=== PATIENT | male | born 1950 | race Caucasian/White ===

== ENCOUNTER → 2021-11-22 | Outpatient (CLI) | payer MEDICARE ==
[2021-11-22 09:34] LABS: INR 0.93 (0.85-1.15); PROTHROMBIN TIME 10.1 SEC (9.6-11.6)
[2021-11-22 09:35] LABS: PARTIAL THROMBOPLASTIN TIME 24.5 SEC (26.3-35.5)
== END | disposition home or self-care (01) ==
LOC: RAH 08:28
PROVIDERS: ATTEND Otolaryngology Plastic Surgery within the Head & Neck
DX: C43.4 Malignant melanoma of scalp and neck (principal); R59.0 Localized enlarged lymph nodes; Z79.01 Long term (current) use of anticoagulants
CPT/HCPCS: 36415; 38505; 76942; 85610; 85730; 88305; 88341; 88342

== ENCOUNTER 2022-07-04 09:22 | Inpatient (IN) | payer MEDICARE ==
[~2022-07-04] VITALS: Ht 172.7 cm; Wt 99.8 kg
[2022-07-04 10:00] LABS: BASOPHILS % (AUTO) 0.2 % (0.0-5.0); EOSINOPHILS % (AUTO) 0.5 % (0.0-8.0); HEMATOCRIT 29.1 % (42-54); LYMPHOCYTES % (AUTO) 23.3 % (21.0-51.0); MEAN CORPUSCULAR HEMOGLOBIN 35.2 pg (27.0-33.0); MEAN CORPUSCULAR VOLUME 103.6 fL (79-99); MONOCYTES % (AUTO) 6.2 % (3.0-13.0); NEUTROPHILS % (AUTO) 68.8 % (40.0-77.0); PLATELET COUNT (AUTO) 169 K/uL (130-400); RED BLOOD CELL COUNT(AUTO) 2.81 MIL/uL (4.50-6.20); RED CELL DISTRIBUTION WIDTH 16.4 % (11.0-15.5); WHITE BLOOD COUNT (AUTO) 13.1 K/uL (4.8-10.8)
[2022-07-04 10:07] LABS: CARBON DIOXIDE 21 mmol/L (21-32); CHLORIDE 104 mmol/L (101-111); CREATININE 1.7 mg/dL (0.5-1.5); GLOMERULAR FILTR. RATE CALC 43 mL/min (>90); GLUCOSE,RANDOM 98 mg/dL (70-105); POTASSIUM 3.5 mmol/L (3.5-5.1); SODIUM SERUM 137 mmol/L (136-145); UREA NITROGEN, BLOOD 21 mg/dL (7-18)
[2022-07-04 10:15] LABS: ALANINE AMINOTRANSFERASE 33 U/L (12-78); ALBUMIN 3.1 g/dL (3.5-5.0); ASPARTATE AMINOTRANSFERASE 14 U/L (10-37); TOTAL PROTEIN, SERUM 5.3 g/dL (6.0-8.3)
[2022-07-04] MEDS ORDERED: MORPHINE 2 MG SYG ONE (10:30)
[2022-07-04] MEDS ORDERED: ONDANSETRON 4MG INJ ONE (10:31)
[2022-07-04] MEDS ORDERED: PHARMACY COMMUNICATION MISC PRN (11:30)
[2022-07-04] MEDS ORDERED: ACETAMINOPHEN 325 MG TAB PO PRN (11:30)
[2022-07-04] MEDS ORDERED: ONDANSETRON 4MG INJ IVP PRN (11:30)
[2022-07-04] MEDS: CHLORDIAZEPOXIDE HCL 25 MG CAP PO PRN ×3 (12:12→20:25)
[2022-07-04] MEDS: MORPHINE 2 MG SYG IVP PRN ×2 (12:12→16:00)
[2022-07-04 12:46] LABS: BASOPHILS % (AUTO) 0.2 % (0.0-5.0); EOSINOPHILS % (AUTO) 0.4 % (0.0-8.0); HEMATOCRIT 27.7 % (42-54); LYMPHOCYTES % (AUTO) 24.2 % (21.0-51.0); MEAN CORPUSCULAR HEMOGLOBIN 35.7 pg (27.0-33.0); MEAN CORPUSCULAR HGB CONC 34.3 g/dL (32.0-36.0); MEAN CORPUSCULAR VOLUME 104.1 fL (79-99); MONOCYTES % (AUTO) 6.2 % (3.0-13.0); NEUTROPHILS % (AUTO) 68.2 % (40.0-77.0); PLATELET COUNT (AUTO) 137 K/uL (130-400); RED BLOOD CELL COUNT(AUTO) 2.66 MIL/uL (4.50-6.20); RED CELL DISTRIBUTION WIDTH 16.3 % (11.0-15.5); WHITE BLOOD COUNT (AUTO) 11.3 K/uL (4.8-10.8)
[2022-07-04 13:03] LABS: CREATININE 1.4 mg/dL (0.5-1.5)
[2022-07-04 13:06] LABS: TOTAL PROTEIN, SERUM 5.2 g/dL (6.0-8.3)
[2022-07-04 15:33] LABS: APPEARANCE,URINE CLEAR (CLEAR); BILIRUBIN,URINE NEGATIVE (NEGATIVE); COLOR,URINE LIGHT-YELLOW (YELLOW); GLUCOSE, URINE (UA) NEGATIVE (NEGATIVE); KETONES,URINE 5 mg/dL (NEGATIVE); LEUKOCYTE ESTERASE ,URINE NEGATIVE Leu/uL (NEGATIVE); NITRATE,URINE NEGATIVE (NEGATIVE); OCCULT BLOOD,URINE NEGATIVE (NEGATIVE); PH,URINE 5.5 (5.0-8.0); PROTEIN,URINE NEGATIVE (NEGATIVE); UROBILINOGEN,URINE 0.2 mg/dL (0.2-1.0)
[2022-07-04 15:39] LABS: AMPHET/METH SCREEN,URINE NEGATIVE (NEGATIVE); BARBITURATE SCREEN, URINE NEGATIVE (NEGATIVE); BENZODIAZEPINES SCREEN,URINE NEGATIVE (NEGATIVE); CANNABINOID SCREEN,URINE NEGATIVE (NEGATIVE); COCAINE SCREEN,URINE NEGATIVE (NEGATIVE); OPIATE SCREEN,URINE POSITIVE (NEGATIVE); PHENCYCLIDINE SCREEN,URINE NEGATIVE (NEGATIVE)
[2022-07-04 15:46] LABS: BACTERIA,URINE RARE /HPF (None Seen); MUCUS,URINE RARE LPF (None Seen); RBC,URINE 0-1 /HPF (0-1); SQUAMOUS EPITHELIAL CELL,UR RARE /HPF (0-2)
[2022-07-04 16:00] VITALS: BP 96/60
[2022-07-04 20:00] VITALS: BP 116/65
[2022-07-04] MEDS: 0.9%NACL 1000ML 1,000 ML IV SCH (20:40)
[2022-07-05] VITALS (30 sets, daily range): BP systolic 100–130; BP diastolic 50–65
[2022-07-05 04:27] LABS: HEMATOCRIT 26.3 % (42-54); MEAN CORPUSCULAR HEMOGLOBIN 35.1 pg (27.0-33.0); MEAN CORPUSCULAR HGB CONC 32.7 g/dL (32.0-36.0); MEAN CORPUSCULAR VOLUME 107.3 fL (79-99); PLATELET COUNT (AUTO) 129 K/uL (130-400); RED BLOOD CELL COUNT(AUTO) 2.45 MIL/uL (4.50-6.20); RED CELL DISTRIBUTION WIDTH 15.9 % (11.0-15.5); WHITE BLOOD COUNT (AUTO) 7.5 K/uL (4.8-10.8)
[2022-07-05 04:48] LABS: ALBUMIN 2.6 g/dL (3.5-5.0); CREATININE 1.1 mg/dL (0.5-1.5); POTASSIUM 3.6 mmol/L (3.5-5.1); TOTAL PROTEIN, SERUM 4.8 g/dL (6.0-8.3)
[2022-07-05] MEDS: MORPHINE 2 MG SYG IVP PRN ×2 (09:15→11:01)
[2022-07-05 10:36] LABS: INR 0.95 (0.85-1.15); PROTHROMBIN TIME 10.4 SEC (9.6-11.6)
[2022-07-05] MEDS ORDERED: DEXAMETHASONE SOD PHOSPHATE 10MG/ML 1ML VIAL ONE (14:28)
[2022-07-05] MEDS ORDERED: LIDOCAINE PF 100MG/5ML (2%) SYRINGE 5ML ONE (14:28)
[2022-07-05] MEDS ORDERED: SUCCINYLCHOLINE 200MG/10ML SYR ONE (14:28)
[2022-07-05] MEDS ORDERED: ONDANSETRON 4MG INJ ONE (14:28)
[2022-07-05] MEDS ORDERED: MIDAZOLAM HCL 1 MG/ML 2ML VIAL ONE (14:29)
[2022-07-05] MEDS ORDERED: PROPOFOL 10 MG/ML 20ML VIAL IV ONE (14:29)
[2022-07-05] MEDS ORDERED: ROCURONIUM 10MG/1ML SYR 10 MG/ML ML ONE ×2 (14:29→15:40)
[2022-07-05] MEDS ORDERED: FENTANYL CITRATE PF 50 MCG/1 ML 2ML VIAL ONE ×2 (14:29→15:45)
[2022-07-05] MEDS ORDERED: NEOSTIGMINE 5MG/5ML SYR IV ONE (14:29)
[2022-07-05] MEDS ORDERED: GLYCOPYRROLATE 1 MG/5 ML SYRINGE ONE (14:29)
[2022-07-05] MEDS ORDERED: ROPIVACAINE 0.5% 5MG/ML 30ML IJ ONE (14:31)
[2022-07-05] MEDS ORDERED: CEFAZOLIN SODIUM 2 GM VIAL IVPB ONE (15:21)
[2022-07-05] MEDS ORDERED: EPHEDRINE SULFATE 50 MG/ML AMPULE ONE (16:42)
[2022-07-05] MEDS ORDERED: ALBUMIN (HUMAN) 5% 250 ML IV ONE (16:45)
[2022-07-05] MEDS ORDERED: HYDROCODONE/ACETAMINOPHEN 5/325 MG TAB PO PRN ×2 (22:00)
[2022-07-05] MEDS: CEFAZOLIN SODIUM 1 GM VIAL IVPB SCH (22:09)
[2022-07-05] MEDS: 0.9%NACL 1000ML 1,000 ML IV SCH (22:10)
[2022-07-06] VITALS: BP 101/62
[2022-07-06 00:30] VITALS: BP 112/61
[2022-07-06] MEDS: CHLORDIAZEPOXIDE HCL 25 MG CAP PO PRN ×3 (03:02→20:17)
[2022-07-06 04:00] VITALS: BP 107/64
[2022-07-06 05:05] LABS: ALBUMIN 2.6 g/dL (3.5-5.0); CREATININE 0.9 mg/dL (0.5-1.5); POTASSIUM 4.3 mmol/L (3.5-5.1); TOTAL PROTEIN, SERUM 4.8 g/dL (6.0-8.3)
[2022-07-06] MEDS: CEFAZOLIN SODIUM 1 GM VIAL IVPB SCH (05:42)
[2022-07-06 08:17] LABS: BASOPHILS % (AUTO) 0.1 % (0.0-5.0); MEAN CORPUSCULAR HEMOGLOBIN 35.7 pg (27.0-33.0); MEAN CORPUSCULAR VOLUME 104.9 fL (79-99); MONOCYTES % (AUTO) 5.8 % (3.0-13.0); NEUTROPHILS % (AUTO) 80.2 % (40.0-77.0); PLATELET COUNT (AUTO) 143 K/uL (130-400); RED BLOOD CELL COUNT(AUTO) 1.85 MIL/uL (4.50-6.20); RED CELL DISTRIBUTION WIDTH 15.6 % (11.0-15.5); WHITE BLOOD COUNT (AUTO) 12.3 K/uL (4.8-10.8)
[2022-07-06 08:22] LABS: HEMATOCRIT 19.4 % (42-54)
[2022-07-06 10:00] VITALS: BP 110/56
[2022-07-06] MEDS: 0.9%NACL 1000ML 1,000 ML IV SCH (13:00)
[2022-07-06 15:25] LABS: HEMATOCRIT 21.4 % (42-54)
[2022-07-06 16:00] VITALS: BP 108/70
[2022-07-06 20:00] VITALS: BP 129/57
[2022-07-06] MEDS ORDERED: LORAZEPAM 2 MG/ML 1 ML VIAL IVP PRN (21:30)
[2022-07-07] MEDS: 0.9%NACL 1000ML 1,000 ML IV SCH (07:33)
[2022-07-07 08:00] VITALS: BP 125/63
[2022-07-07 09:42] LABS: BASOPHILS % (AUTO) 0.4 % (0.0-5.0); EOSINOPHILS % (AUTO) 0.7 % (0.0-8.0); HEMATOCRIT 24.4 % (42-54); MEAN CORPUSCULAR HEMOGLOBIN 32.8 pg (27.0-33.0); MEAN CORPUSCULAR HGB CONC 32.8 g/dL (32.0-36.0); MONOCYTES % (AUTO) 6.9 % (3.0-13.0); NEUTROPHILS % (AUTO) 67.2 % (40.0-77.0); PLATELET COUNT (AUTO) 207 K/uL (130-400); RED BLOOD CELL COUNT(AUTO) 2.44 MIL/uL (4.50-6.20); RED CELL DISTRIBUTION WIDTH 21.7 % (11.0-15.5); WHITE BLOOD COUNT (AUTO) 10.9 K/uL (4.8-10.8)
[2022-07-07 09:50] LABS: POTASSIUM 4.2 mmol/L (3.5-5.1)
[2022-07-07 09:56] LABS: ALBUMIN 3.1 g/dL (3.5-5.0); TOTAL PROTEIN, SERUM 6.2 g/dL (6.0-8.3)
[2022-07-07 10:18] LABS: % IRON SATURATION 15.8 % (30-44)
[2022-07-07] MEDS ORDERED: TRAM50TA4 PO (10:41)
[2022-07-07] MEDS ORDERED: TRAMADOL HCL 50 MG TABLET PO PRN (11:00)
[2022-07-07 12:00] VITALS: BP 98/64
== END 2022-07-07 17:00 | DRG 481 ==
LOC: EDH 09:22 → EDHIP 11:18 → 4DH 15:00
PROVIDERS: ADMIT Hospitalist; ATTEND Hospitalist
PROC: 0QSB04Z Reposition Right Lower Femur with Internal Fixation Device, Open Approach (ICD-10-PCS; principal; 2022-07-05 15:43)
PROC: 30233N1 Transfusion of Nonautologous Red Blood Cells into Peripheral Vein, Percutaneous Approach (ICD-10-PCS; 2022-07-06)
DX: S72.491A Other fracture of lower end of right femur, initial encounter for closed fracture (principal); D62 Acute posthemorrhagic anemia; I10 Essential (primary) hypertension; W18.39XA Other fall on same level, initial encounter; Z53.20 Procedure and treatment not carried out because of patient's decision for unspecified reasons; Y93.89 Activity, other specified; Y92.89 Other specified places as the place of occurrence of the external cause; Y99.8 Other external cause status; Z85.820 Personal history of malignant melanoma of skin; Z91.199 Patient's noncompliance with other medical treatment and regimen due to unspecified reason
CPT/HCPCS: 36415; 73522; 73552; 73562; 80053; 80305; 81001; 83540; 83550; 85014; 85018; 85025; 85027; 85610; 86850; 86900; 86901; 86923; 97039; G0378; J0330; J0690; J1100; J2001; J2060; J2250; J2405; J2704; J2710; J2795; J3010; J3490; P9016; P9045